=== PATIENT | female | born 1945 | race Caucasian/White ===

== ENCOUNTER 2017-04-17 13:58 | Outpatient (CLI) | payer MEDICARE ==
--- NOTE | 2017-04-17 14:30 | RAD ---
RIGHT KNEE FOUR VIEWS: History: Fall, right knee pain. FINDINGS/IMPRESSION: There are post op changes of total knee replacement in good position and alignment. No acute fractur e or dislocation is identified. The bones are osteopenic. No periprosthetic lucencies are identified to suggest loosening. POS: [facility]
--- NOTE | 2017-04-17 14:32 | RAD ---
TWO VIEWS RIGHT HIP: Indication: Fall with right hip pain. 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 No acute fracture or subluxation is evide nt. There is a central calcification seen within the lower pelvis likely related to a fibroid. There is diffuse osteopenia. IMPRESSION: 2. No acute osseous abnormality. 2. Calcified fibroid in the central pelvis. POS: [facility]
--- NOTE | 2017-04-17 14:59 | RAD ---
FOUR VIEWS OF THE RIGHT FEMUR: Indication: Fall with right leg pain. FINDINGS: There is diffuse osteopenia. There is a right total knee prosthesis. There are scattered vascular ca lcifications within the adjacent soft tissues. No acute fracture or subluxation is evident. IMPRESSION: No acute osseous abnormality. POS: [facility]
== END 2017-04-17 13:59 | disposition home or self-care (01) ==
LOC: SCSRAD 13:58
PROVIDERS: ATTEND Nurse Practitioner Family
DX: M25.551 Pain in right hip (principal); D36.7 Benign neoplasm of other specified sites; Z96.651 Presence of right artificial knee joint

== ENCOUNTER 2017-11-15 08:31 | Outpatient (CLI) | payer MEDICARE ==
--- NOTE | 2017-11-15 11:40 | RAD ---
RIGHT TIBIA FIBULA 2 VIEWS: CLINICAL HISTORY: Right leg pain and bruising, edema. FINDINGS: There is a right knee prosthesis partially visualized. No acute fracture of tibia or fibula evident. There is vascular calcification. IMPRESSION: No acute osseous abnormality of the right leg. POS: [facility]
--- NOTE | 2017-11-15 11:45 | RAD ---
RIGHT KNEE 4 VIEWS: Date: 11/15/17 HISTORY: Knee pain. Patient fell from bed. FINDINGS: Total knee prosthesis is in good position. There are no signs of fracture or joint effusion. The bone s appear demineralized. IMPRESSION: No evidence of acute injury. POS: [facility]
--- NOTE | 2017-11-15 11:45 | RAD ---
LEFT HIP 2 VIEWS: Date: 11/15/17 HISTORY: Left hip pain. Patient fell from bed Saturday. FINDINGS: There are marked arthritic changes of the hip with joint space narrowing and spur formation. There is no fracture. IMPRESSION: Moderate arthritic changes of the hip. POS: [facility]
--- NOTE | 2017-11-15 11:47 | RAD ---
CERVICAL SPINE SERIES 3 VIEWS: Date: 11/15/17 HISTORY: Neck pain. FINDINGS: There are severe arthritic changes of the neck. There is some very mild disc narrowing at C3-4, more pronounced disc narrowing at C4-5, C5-6, and C6-7. Mild retrolisthesis of C4 on C5 and C5 on C6. Ther e are degenerative facet changes noted. IMPRESSION: Marked arthritic changes of the spine. No acute process. POS: [facility]
== END 2017-11-15 08:32 | disposition home or self-care (01) ==
LOC: SCSRAD 08:31
PROVIDERS: ATTEND Family Medicine
DX: M79.661 Pain in right lower leg (principal); M25.552 Pain in left hip; M54.2 Cervicalgia; M47.892 Other spondylosis, cervical region; M16.12 Unilateral primary osteoarthritis, left hip
CPT/HCPCS: 72040